=== PATIENT | male | born 1965 | race Caucasian/White ===

== ENCOUNTER 2018-11-10 16:30 | Emergency (ER) | payer OTHER ==
[~2018-11-10] VITALS: Ht 170.2 cm; Wt 81.6 kg
[2018-11-10] MEDS ORDERED: NOVOLOG100 UNIT/1 (16:40)
[2018-11-10] MEDS ORDERED: JANUMET 50-1,01 EACH (16:40)
[2018-11-10] MEDS ORDERED: JARDIANCE10 MG (16:41)
[2018-11-10] MEDS ORDERED: INTESTINEX680 M1 PO (17:50)
[2018-11-10] MEDS ORDERED: CELECOXIB100 MG PO (17:50)
[2018-11-10] MEDS ORDERED: SKELAXIN800 MG PO (17:50)
[2018-11-10] MEDS ORDERED: AMOX-CLAV 875-1 EACH PO (17:50)
== END 2018-11-10 18:06 ==
LOC: ER 16:30
DX: S80.211A Abrasion, right knee, initial encounter (principal); S00.81XA Abrasion of other part of head, initial encounter; W10.8XXA Fall (on) (from) other stairs and steps, initial encounter; Y93.89 Activity, other specified; Y92.098 Other place in other non-institutional residence as the place of occurrence of the external cause; Y99.8 Other external cause status